=== PATIENT | female | born 1980 | race Caucasian/White ===

== ENCOUNTER 2019-04-26 08:17 | Outpatient (REF) | payer BC, SELFPAY ==
[2019-04-26 13:24] LABS: Absolute Basophil Count 0.01 k/cumm (0.0-0.2); Absolute Eosinophil Count 0.11 k/cumm (0.0-0.7); Absolute Lymphocyte Count 1.78 k/cumm (1.2-3.4); Absolute Monocyte Count 0.28 k/cumm (0.11-0.7); Basophils % 0.3; Eosinophils % 2.8; HCT 39.4 % (36.0-46.0); HGB 13.9 g/dL (12.0-15.5); Lymphocytes % 45.9; Mean Corp. HGB Concentration 35.3 g/dL (32.0-36.0); Mean Corpuscular Hemoglobin 30.8 pg (27.0-33.0); Mean Corpuscular Volume 87.4 fL (80-95); Mean Platelet Volume 10.4 fL (8.0-11.0); Monocytes % 7.2; Neutrophils % 43.8; Platelet Count 227 x1000/uL (130-400); RBC 4.51 m/cumm (4.00-5.20); RBC Distribution Width 12.5 % (11.7-14.6); White Blood Cell Count 3.88 k/cumm (4.4-10.8)
[2019-04-26 14:25] LABS: ALT 30 U/L (12-78); AST 17 U/L (15-37); Albumin 3.5 g/dL (3.4-5.0); Alkaline Phosphatase 60 U/L (46-116); Anion Gap 9.4 mmol/L (3-11); BUN 17 mg/dL (7-18); Bilirubin, Total 0.6 mg/dL (0.2-1.0); CO2 25.6 mmol/L (21.0-32.0); CREATININE 0.76 mg/dL (0.55-1.02); Calcium 8.6 mg/dL (8.5-10.1); Chloride 108 mmol/L (98-107); Glucose 88 mg/dL (70-100); Sodium 143 mmol/L (136-145); TSH (W/Ref FT4) 1.23 uIU/mL (0.358-3.74); Total Protein 6.3 g/dL (6.4-8.2); Vitamin B12 351 pg/mL (193-986)
== END 2019-04-26 08:37 ==
LOC: NCHCN 08:17
PROVIDERS: PCP Family Medicine; Visit Provider Family Medicine
DX: F41.8 Other specified anxiety disorders (principal)
CPT/HCPCS: 80053; 82607; 84443; 85025

== ENCOUNTER 2019-12-01 12:32 | Outpatient (REF) | payer BC, SELFPAY ==
--- NOTE | 2019-11-30 10:10 | PAPFT_PTH ---
PATIENT: Deborah Cabrera [facility] U#:[id number] AGE/SX: 39/F ROOM: RE12/01/[address]: Jazz Gonzalez : 1980 BED: DIS: 12/01/2019 SPEC #: [id number] RECD: 12/01/19 13:06 STATUS: ANTHONY REJacquelin #: [id number] SINA: 11/30/19 10:[address]: Jazz Gonzalez DEPT: [facility] Cytology RECD BY: Abby Jordan Tissues: 1 - CX/ENDOCX FOR PAP SMEARS Procedures: PAP THIN PREP/UVM Screening HPV DNA PROBE Comments: [id number]
== END 2019-12-01 12:52 ==
LOC: NCHCN 12:32
PROVIDERS: PCP Family Medicine; Visit Provider Family Medicine
DX: Z00.00 Encounter for general adult medical examination without abnormal findings (principal); Z12.4 Encounter for screening for malignant neoplasm of cervix; Z01.419 Encounter for gynecological examination (general) (routine) without abnormal findings; Z11.51 Encounter for screening for human papillomavirus (HPV)
CPT/HCPCS: 88142; 87624

== ENCOUNTER 2020-10-29 21:50 | Outpatient (REF) | payer BC, SELFPAY ==
[2020-10-29 21:33] LABS: Abs Immature Grans 0.02 10^3/uL (0.0-0.06); Absolute Basophil Count 0.02 10^3/uL (0.0-0.2); Absolute Eosinophil Count 0.07 10^3/uL (0.0-0.7); Absolute Lymphocyte Count 1.89 10^3/uL (1.2-3.4); Absolute Monocyte Count 0.28 10^3/uL (0.1-0.8); Absolute Neutrophil Count 2.98 10^3/uL (1.2-6.7); Basophils % 0.4; Eosinophils % 1.3; HCT 42.3 % (36.0-46.0); HGB 14.4 g/dL (11.2-15.7); Immature Grans % 0.4; Lymphocytes % 35.9; MCV 88.1 fL (80-95); MPV 9.8 fL (8.0-11.0); Monocytes % 5.3; Neutrophils % 56.7; Nucleated RBC 0 %; Platelet Count 256 10^3/uL (130-400); RDW 11.3 % (11.7-14.6); RDW-SD 36.4 fL; WBC 5.26 10^3/uL (4.4-10.8)
[2020-10-29 21:40] LABS: Iron 54 ug/dL (50-170); Total Iron Binding Capacity 271 ug/dL (250-450); Transferrin Sat 20 % (15-50)
[2020-10-29 21:46] LABS: ALT 25 U/L (14-59); AST 13 U/L (15-37); Albumin 4.1 g/dL (3.4-5.0); Alkaline Phosphatase 74 U/L (46-116); Anion Gap 8.2 mmol/L (3-11); BUN 16 mg/dL (7-18); Bilirubin, Total 0.4 mg/dL (0.2-1.0); CO2 27.8 mmol/L (21.0-32.0); Calcium 8.7 mg/dL (8.5-10.1); Calculated LDL 85 mg/dL (<100); Chloride 105 mmol/L (98-107); Cholesterol 177 mg/dL (<200); Glucose 91 mg/dL (74-106); HDL Cholesterol 79 mg/dL (40-60); Magnesium 1.9 mg/dL (1.8-2.4); Sodium 141 mmol/L (136-145); TSH (W/Ref FT4) 0.95 uIU/mL (0.36-3.74); Total Protein 7.2 g/dL (6.4-8.2); Triglyceride 66 mg/dL (<150)
[2020-10-31 04:50] LABS: Vitamin D 25 Total 31.8 ng/ml (30-100)
== END 2020-10-29 22:10 ==
LOC: NCHCN 21:50
PROVIDERS: PCP Family Medicine; Visit Provider Nurse Practitioner Family
DX: R00.2 Palpitations (principal); Z00.00 Encounter for general adult medical examination without abnormal findings
CPT/HCPCS: 80053; 80061; 82306; 83540; 83550; 83735; 84443; 85025

== ENCOUNTER 2023-02-18 02:48 | Outpatient (CLI) | payer BC, SELFPAY ==
[2023-02-18 14:58] LABS: Abs Immature Grans 0.02 10^3/uL (0.0-0.06); Absolute Basophil Count 0.03 10^3/uL (0.0-0.2); Absolute Eosinophil Count 0.05 10^3/uL (0.0-0.7); Absolute Lymphocyte Count 2.32 10^3/uL (1.2-3.4); Absolute Monocyte Count 0.48 10^3/uL (0.1-0.8); Absolute Neutrophil Count 4.81 10^3/uL (1.2-6.7); Basophils % 0.4; Eosinophils % 0.6; HCT 38.3 % (36.0-46.0); HGB 13.5 g/dL (11.2-15.7); Immature Grans % 0.3; Lymphocytes % 30.1; MCH 30.3 pg (27.0-33.0); MCHC 35.2 % (32.0-36.0); MCV 86 fL (80-95); Monocytes % 6.2; Neutrophils % 62.4; Platelet Count 281 10^3/uL (130-400); RBC 4.45 10^6/uL (3.93-5.22); RDW 11.8 % (11.7-14.6); RDW-SD 36.5 fL; WBC 7.71 10^3/uL (4.4-10.8)
[2023-02-18 15:44] LABS: ALT 23 U/L (14-59); AST 15 U/L (15-37); Alkaline Phosphatase 70 U/L (46-116); Anion Gap 9.9 mmol/L (3-11); BUN 17 mg/dL (7-18); Bilirubin, Total 0.4 mg/dL (0.2-1.0); CO2 25.1 mmol/L (21.0-32.0); CREATININE 0.8 mg/dL (0.55-1.02); Calcium 9.2 mg/dL (8.5-10.1); Chloride 105 mmol/L (98-107); Estimated GFR 94.28 (mL/min/1.73m2); FREE T4 1.17 ng/dL (0.76-1.46); Glucose 102 mg/dL (74-106); Magnesium 1.8 mg/dL (1.8-2.4); Potassium 3.6 mmol/L (3.5-5.1); Sodium 140 mmol/L (136-145); TSH 1.04 uIU/mL (0.36-3.74); Total Protein 7.3 g/dL (6.4-8.2)
[2023-02-18 15:57] LABS: Iron 57 ug/dL (50-170); Total Iron Binding Capacity 276 ug/dL (250-450)
[2023-02-18 16:22] LABS: Vitamin D 25 Total 17.6 ng/mL (30-100)
[2023-02-18 16:37] LABS: Ferritin 47 ng/mL (8-252); Folate 19.2 ng/mL (8.6-20.0); Vitamin B12 164 pg/mL (193-986)
[2023-02-18 23:12] LABS: T3,Free 4.5 pg/mL (2.8-5.3)
[2023-02-18 23:52] LABS: Estradiol 141 pg/mL (See Note)
[2023-02-19 09:18] LABS: DHEA Sulfate 213 ug/dL (75-410)
[2023-02-23 15:06] LABS: Testosterone, Free 0.59 ng/dL (<0.13-0.98); Testosterone, Total 51 ng/dL (8-60)
== END 2023-02-18 02:49 | disposition home or self-care (01) ==
LOC: LBO 02:49
PROVIDERS: PCP Family Medicine; Visit Provider Naturopath
DX: E55.9 Vitamin D deficiency, unspecified (principal); R53.83 Other fatigue
CPT/HCPCS: 36415; 80053; 82306; 82627; 84402; 84403; 82607; 82670; 82728; 82746; 83036; 83540; 83550; 83735; 84439; 84443; 84481; 85025

== ENCOUNTER 2023-02-19 10:15 | Outpatient (REF) | payer BC, SELFPAY ==
[2023-02-22 22:00] LABS: Calprotectin <50.0 mcg/g
== END 2023-02-19 10:16 | disposition home or self-care (01) ==
LOC: LBN 10:15
PROVIDERS: PCP Family Medicine; Visit Provider Naturopath
DX: R53.83 Other fatigue (principal); K58.0 Irritable bowel syndrome with diarrhea
CPT/HCPCS: 83630; 83993

== ENCOUNTER 2023-03-29 10:14 | Outpatient (REF) | payer BC, SELFPAY ==
--- NOTE | 2023-03-29 09:20 | PAPFT_PTH ---
PATIENT: Deborah Cabrera LOC: [facility] U#:[id number] AGE/SX: 43/F ROOM: RE03/29/[address]: Bre Bhakta NP : 1980 BED: DIS: 03/29/2023 SPEC #: [id number] RECD: 03/29/23 12:53 STATUS: ANTHONY REJacquelin #: [id number] SINA: 03/29/23 09:[address]: Bre Bhakta NP DEPT: [facility] Cytology RECD BY: Abby Jordan ENTERED: 03/29/23 12:53 SP TYPE: PAPFT OTHR DR: Jazz Gonzalez Tissues: 1 - CX/ENDOCX FOR PAP SMEARS Procedures: PAP THIN PREP/[facility] Screening HPV DNA PROBE Comments: [id number]
== END 2023-03-29 10:15 | disposition home or self-care (01) ==
LOC: LBN 10:14
PROVIDERS: PCP Family Medicine; Visit Provider Nurse Practitioner Women's Health
DX: Z11.51 Encounter for screening for human papillomavirus (HPV) (principal)
CPT/HCPCS: 88142; 87624

== ENCOUNTER 2023-03-30 02:34 | Outpatient (CLI) | payer BC, SELFPAY ==
--- NOTE | 2023-03-30 07:45 | DI.MAMMO_ITS ---
Exam(s) MAMMO SCREENING EXAM: MAMMO SCREENING CLINICAL HISTORY: screening, Z12.39 TECHNIQUE: Bilateral full field digital CC and MLO mammographic images were obtained with 3D tomosyn thesis and utilizing computer aided detection (CAD). COMPARISON: This is a baseline examination. FINDINGS: Masses/Architectural Distortion: None seen. Microcalcifications: No suspicious pleomorphic-type are seen. Skin Thickening/Nipple Retraction: None. IMPRESSION: 1. No significant interval change with no specific features of malignancy noted. 2. Unless there is more urgent need, screening mammography is recommended, as per [employer] guidelines. BI-RADS Category 1 - Negative Breast Density - Category C - Heterogeneously dense Breast density category C or D implies that the patient has dense breast tissue. Dense breast tissue is very common and is not abnormal but dense breast tissue can make it harder to find cancer on a ma mmogram. Also, dense breast tissue may increase their breast cancer risk. This information about the result of the mammogram report was provided to the patient to raise their awareness. Use this report when you speak with the patient about their risks for breast cancer, which includes their family hist ory. At that time, you may recommend for more screening tests (Ultrasound or MRI) as they might be us eful based on their risk. A negative radiographic report should not delay biopsy if a dominant or clinically suspicious mass is present. Up to ten percent of cancers are not identified on mammography. A negative report may reinforce clinical impression. Adenosis and dense breasts may obscure an underlying neoplasm. False positive reports average 6 to 10%. Patient will receive a letter notifying them of these results.
== END 2023-03-30 02:54 ==
LOC: DI 02:34
PROVIDERS: PCP Family Medicine; Visit Provider Nurse Practitioner Women's Health
DX: Z12.31 Encounter for screening mammogram for malignant neoplasm of breast (principal)
CPT/HCPCS: 77063; 77067

== ENCOUNTER 2025-05-23 01:38 | Outpatient (CLI) | payer BC, SELFPAY ==
--- NOTE | 2025-05-23 11:45 | DI.MAMMO_ITS ---
Exam(s) MAMMO SCREENING EXAM: MAMMO SCREENING CLINICAL HISTORY: screening TECHNIQUE: Bilateral full field digital CC and MLO mammographic images were obtained with 3D tomosynthesis and utilizing computer aided detection (CAD). COMPARISON: Comparison is made with prior examinations. FINDINGS: There has been significant weight loss since the prior examination. Masses/Architectural Distortion: No suspicious masses or areas of architectural distortion are present. Microcalcifications: No suspicious pleomorphic-type are seen. Skin Thickening/Nipple Retraction: None. IMPRESSION: 1. No significant interval change with no specific features of malignancy noted. 2. Unless there is more urgent need, screening mammography is recommended, as per [employer] guidelines. BI-RADS Category 1 - Negative Breast Density - Category D - The breast are extremely dense, which lowers the sensitivity of the mammography. Breast density Category C or D implies that the patient has dense breast tissue. Dense breast tissue can make it harder to find cancer on a mammogram. Dense breast tissue is also associated with an increased risk of breast cancer. This information about the result of the mammogram report was provided to the patient to raise their awareness. Use this report when you speak with the patient about their risks for breast cancer, which includes their family history. At that time, you may recommend additional screening tests (Ultrasound or MRI) as these tests may add significant information. A negative radiographic report should not delay biopsy if a dominant or clinically suspicious mass is present. Up to ten percent of cancers are not identified on mammography. A negative report may reinforce clinical impression. Adenosis and dense breasts may obscure an underlying neoplasm. False positive reports average 6 to 10%. Patient will receive a letter notifying them of these results.
== END 2025-05-23 01:58 ==
LOC: DI 01:38
PROVIDERS: PCP Family Medicine; Visit Provider Nurse Practitioner Women's Health
DX: Z12.31 Encounter for screening mammogram for malignant neoplasm of breast (principal); R92.343 Mammographic extreme density, bilateral breasts
CPT/HCPCS: 77063; 77067